=== PATIENT | male | born 1985 | race Caucasian/White ===

== ENCOUNTER → 2021-05-19 | Outpatient (CLI) | payer OTHER | LOC: M RAD 07:58 | PROVIDERS: ATTEND Otolaryngology | DX: J33.9 Nasal polyp, unspecified (principal) ==

== ENCOUNTER 2021-06-12 10:43 | Day surgery (SDC) | payer OTHER ==
[~2021-06-12] VITALS: Ht 175.3 cm; Wt 95.3 kg
[~2021-06-12 10:43] MED LIST: EMLA CREAM 5GM TUBE (LIDOCAINE/PRILOCAINE) TOP PRN; FLUT44IN INH; LIDOCAINE 1% MDV 20ML VIAL SQ PRN; LR 1,000 ML IV ONE; PRED1TABL PO
[2021-06-12] MEDS ORDERED: LIDOCAINE 2% 100MG/5ML SDV (FOR ANES.) As Ordered ONE (12:37)
[2021-06-12] MEDS ORDERED: MIDAZOLAM INJ 2MG/2ML VIAL (J2250 PER 1MG) As Ordered ONE (12:37)
[2021-06-12] MEDS ORDERED: propofoL 200 MG/20 ML VIAL As Ordered ONE ×2 (12:37→13:12)
[2021-06-12] MEDS ORDERED: ROCURONIUM BROMIDE 50 MG/5 ML VIAL As Ordered ONE ×2 (12:37→14:50)
[2021-06-12] MEDS ORDERED: fentaNYL 100 MCG/2 ML INJECTION As Ordered ONE ×2 (12:37→14:01)
[2021-06-12] MEDS ORDERED: ONDANSETRON 4MG/2ML VIAL As Ordered ONE (12:38)
[2021-06-12] MEDS ORDERED: dexameTHASONE 4 MG/ML 1ML VIAL (J1100 PER 1MG) As Ordered ONE (12:38)
[2021-06-12] MEDS ORDERED: OXYMETAZOLINE 0.05% NASAL SPRAY (AFRIN) As Ordered ONE (13:12)
[2021-06-12] MEDS ORDERED: LIDOCAINE W/EPINEPHRINE 1% 20ML VIAL As Ordered ONE (13:12)
[2021-06-12] MEDS ORDERED: COCAINE 4% 4ML NASAL SOLUTION BTL As Ordered ONE (13:32)
[2021-06-12] MEDS ORDERED: LABETALOL 100MG/20ML VIAL As Ordered ONE (14:06)
[2021-06-12] MEDS ORDERED: METOPROLOL 5 MG/5 ML VIAL As Ordered ONE (14:18)
[2021-06-12] MEDS ORDERED: NITROGLYCERIN IN D5W 25MG/250ML (100MCG/ML) As Ordered ONE (14:23)
[2021-06-12] MEDS ORDERED: fentaNYL 100 MCG/2 ML INJECTION IV PRN (16:20)
[2021-06-12] MEDS ORDERED: LR 1,000 ML IV SCH ×2 (16:20→16:25)
[2021-06-12] MEDS ORDERED: ONDANSETRON 4MG/2ML VIAL IV PRN ×2 (16:20→16:25)
[2021-06-12] MEDS ORDERED: METOCLOPRAMIDE INJ 10MG/2ML VIAL (J2765 PER 1) IV PRN (16:20)
[2021-06-12] MEDS ORDERED: ANEXSIA, NORCO 7.5MG/325MG TABLET(HYDROCODONE/APAP) PO PRN (16:25)
[2021-06-12] MEDS ORDERED: MORPHINE 10 MG/ML 1ML VIAL IV PRN (16:25)
[2021-06-12] MEDS ORDERED: oxyCODONE 5MG TAB PO PRN (16:30)
[2021-06-12] MEDS ORDERED: MORPHINE 2 MG/ML 1ML VIAL As Ordered ONE (16:37)
[2021-06-12] MEDS: MORPHINE 4 MG/ML 1ML VIAL/SYRINGE IV PRN ×2 (16:38→17:25)
[2021-06-12 18:27] VITALS: BP 122/78
== END 2021-06-12 18:32 | disposition home or self-care (01) ==
LOC: M SDC 10:43
PROVIDERS: ATTEND Otolaryngology
DX: J31.0 Chronic rhinitis (principal); J33.9 Nasal polyp, unspecified; J45.909 Unspecified asthma, uncomplicated; Z79.51 Long term (current) use of inhaled steroids; Z79.52 Long term (current) use of systemic steroids
CPT/HCPCS: 31255; 31267; 31288; 88305; C9046; J1100; J2250; J2270; J2405; J3010

== ENCOUNTER 2022-02-05 08:53 | Day surgery (SDC) | payer OTHER ==
[~2022-02-05] VITALS: Ht 171.4 cm; Wt 94.4 kg
[~2022-02-05 08:53] MED LIST changes: +AZEL0.1S; -EMLA CREAM 5GM TUBE (LIDOCAINE/PRILOCAINE) TOP PRN; +FLON1SPR NARES; -LIDOCAINE 1% MDV 20ML VIAL SQ PRN; -LR 1,000 ML IV ONE
[2022-02-05] MEDS ORDERED: LR 1,000 ML IV SCH ×2 (09:00→11:05)
[2022-02-05] MEDS ORDERED: BUPIVACAINE/EPIN 0.5% 30ML VIAL As Ordered ONE (09:47)
[2022-02-05] MEDS ORDERED: LIDOCAINE 2% 100MG/5ML SDV (FOR ANES.) As Ordered ONE (10:36)
[2022-02-05] MEDS ORDERED: ACETAMINOPHEN 1000MG 100ML IV BAG As Ordered ONE (10:36)
[2022-02-05] MEDS ORDERED: ROCURONIUM BROMIDE 50 MG/5 ML VIAL As Ordered ONE (10:36)
[2022-02-05] MEDS ORDERED: SUGAMMADEX SODIUM 500 MG/5 ML VIAL (BRIDION) As Ordered ONE (10:36)
[2022-02-05] MEDS ORDERED: fentaNYL 100 MCG/2 ML INJECTION As Ordered ONE ×2 (10:36→10:52)
[2022-02-05] MEDS ORDERED: MIDAZOLAM INJ 2MG/2ML VIAL (J2250 PER 1MG) As Ordered ONE (10:36)
[2022-02-05] MEDS ORDERED: ONDANSETRON 4MG 2ML VIAL As Ordered ONE (10:36)
[2022-02-05] MEDS ORDERED: propofoL 200 MG/20 ML VIAL As Ordered ONE (10:36)
[2022-02-05] MEDS ORDERED: ONDANSETRON 4MG 2ML VIAL IV PRN (11:05)
[2022-02-05] MEDS ORDERED: HYDROMORPHONE HCL 0.5 MG/ 0.5 ML SYRINGE (J1170 PER 1) IV PRN (11:05)
[2022-02-05] MEDS: fentaNYL 100 MCG/2 ML INJECTION IV PRN ×2 (11:33→11:39)
[2022-02-05] MEDS: oxyCODONE 5MG TAB PO PRN ×2 (11:34→12:05)
[2022-02-05 13:02] VITALS: BP 134/85
== END 2022-02-05 13:47 | disposition home or self-care (01) ==
LOC: M SDC 08:53
PROVIDERS: ATTEND Otolaryngology
DX: J35.01 Chronic tonsillitis (principal); J45.909 Unspecified asthma, uncomplicated; Z79.51 Long term (current) use of inhaled steroids
CPT/HCPCS: 42826; 88302; J0131; J1100; J2250; J2405; J3010

== ENCOUNTER 2022-02-27 15:10 | Emergency (ER) | payer OTHER ==
[~2022-02-27] VITALS: Ht 175.3 cm; Wt 94.3 kg
[2022-02-27] MEDS ORDERED: ACETAMINOPHEN 500 MG TAB PO ONE (16:55)
[2022-02-27] MEDS ORDERED: AMOXICILLIN 500 MG CAP PO ONE (17:30)
[2022-02-27] MEDS ORDERED: LIDOCAINE VISCOUS 2% SOLN 15ML UDC TOP ONE (17:30)
[2022-02-27] MEDS ORDERED: IBUPROFEN 600MG TAB PO ONE (17:30)
[2022-02-27] MEDS ORDERED: AMOX500C PO (17:42)
[2022-02-27] MEDS ORDERED: LIDO2SOL17 MT (17:42)
[2022-02-27 18:12] VITALS: BP 126/85
== END 2022-02-27 18:13 | disposition home or self-care (01) ==
LOC: M ED 15:10
DX: H66.91 Otitis media, unspecified, right ear (principal); J45.909 Unspecified asthma, uncomplicated; J02.9 Acute pharyngitis, unspecified; Z79.899 Other long term (current) drug therapy